=== PATIENT | male | born 1980 | race Caucasian/White ===

== ENCOUNTER 2017-02-01 21:47 | Emergency (ER) | payer MEDICAID, OTHER ==
[2017-02-01 22:01] VITALS: BP 141/72; PULSE 103; RESP 16; TEMP 99.2; O2SAT 98
--- NOTE | 2017-02-01 22:35 | ED PDOC ---
HPI: Dental Pain/Injury Time Seen by Provider: 02/01/17 22:14 Chief Complaint (Nursing): Dental Pain Chief Complaint (Provider): tooth pain History Per: Patient Additional Complaint(s): Patient presents to ED for evaluation of ongoing tooth pain. He states he need something stronger than tylenol as this is not helping the pain. Patient states he is supposed to have several teeth pulled in the morning at [facility] but he was told by his oral surgeon to come to the nearest ED to get a pain killler this evening. Patient denies any fever or chills. Patient is well known to ED for frequent visits. Past Medical History Reviewed: Historical Data, Nursing Documentation, Vital Signs Vital Signs: Last Vital Signs Temp 99.2 F 02/01/17 21:57 Pulse 103 H 02/01/17 21:57 Resp 16 02/01/17 21:57 BP 141/72 02/01/17 21:57 Pulse Ox 98 02/01/17 21:57 - Medical History PMH: Anemia, Anxiety, Asthma, Depression, Fractures, Obstructive Bowel, Post Traumatic Stress Disorder, Seizures, Chronic Pain - Surgical History Other surgeries: bowel resection - Family History Family History: States: No Known Family Hx - Living Arrangements Living Arrangements: With Family - Social History Current smoker - smoking cessation education provided: Yes Alcohol: None Drugs: Denies - Home Medications Home Medications: Ambulatory Orders Medication Instructions Recorded Albuterol 0.083% [Albuterol 0.083% 2 puff INH DAILY 01/29/15 Inhal Natalie (2.5 mg/3 ml) UD] - Allergies Allergies/Adverse Reactions: Allergies Allergy/AdvReac Type Severity Reaction Status Date / Time ibuprofen Allergy Intermediate ANAPHYLAXIS Verified 11/30/15 14:58 latex Allergy Intermediate ANAPHYLAXIS Verified 11/30/15 14:58 levofloxacin [From Levaquin] Allergy Intermediate ANAPHYLAXIS Verified 11/30/15 14:58 Penicillins Allergy Intermediate ANAPHYLAXIS Verified 11/30/15 14:58 povidone-iodine Allergy Intermediate ANAPHYLAXIS Verified 11/30/15 17:06 sulfamethoxazole Allergy Intermediate ANAPHYLAXIS Verified 11/30/15 14:58 [From Bactrim] tramadol HCl [From Ultram] Allergy Intermediate ANAPHYLAXIS Verified 11/30/15 14 :58 trimethoprim [From Bactrim] Allergy Intermediate ITCHING Verified 11/30/15 17:06 Review of Systems ROS Statement: Except As Marked, All Systems Reviewed And Found Negative Constitutional: Negative for: Fever ENT: Positive for: Other (dental pain) Gastrointestinal: Negative for: Vomiting Physical Exam - Reviewed Nursing Documentation Reviewed: Yes Vital Signs Reviewed: Yes - Physical Exam Appears: Positive for: Well, Non-toxic, No Acute Distress Skin: Negative for: Rash Eye Exam: Positive for: Normal appearance ENT: Positive for: Other (overall poor dentition, multiple missing teeth, no gingival erythema or abscesses noted, airway patent, uvula midline) Neurologic/Psych: Positive for: Alert, Oriented, Mood/Affect (agitated) - ECG O2 Sat by Pulse Oximetry: 98 Pulse Ox Interpretation: Normal Medical Decision Making Medical Decision Making: Impression: Dental pain Patient was offered PO tylenol and viscous lidocaine but he refused these meds, stating they won't work for him and he needs something stronger. Patient is well known to ED for history of narcotic abuse. Patient was made aware of narcotic pain management policy. Patient demanded to speak with an attending. Dr. Priest came to bedside to speak with patient and reiterated to patient the narcotic pain med policy. Patient was again offered tylenol and/or viscous lidocaine but he refused both meds. Patient became increasingly agitated, security was called to bedside and patient was escorted out of the ED. He left before receiving any discharge paperwork. Disposition - Clinical Impression Clinical Impression: Pain, dental - Patient ED Disposition Is Patient to be Admitted: No - Disposition Referrals: [facility] [Outside] Disposition: Routine/Home (Patient left before receiving d/c paperwork) Disposition Time: 22:47 Condition: STABLE Instructions: Toothache (ED) Forms: [employer] ([place]ux[place]ish)
== END 2017-02-01 23:16 | disposition left against medical advice (07) ==
LOC: H.ER 21:47
DX: K08.89 Other specified disorders of teeth and supporting structures (principal)

== ENCOUNTER 2018-10-04 09:47 | Emergency (ER) | payer MEDICAID, OTHER ==
[2018-10-04 09:58] VITALS: BP 126/73; PULSE 105; RESP 18; TEMP 97; O2SAT 97
[2018-10-04 09:59] VITALS: BMI 23.8
[2018-10-04] MEDS ORDERED: Oxycodone/Acetaminophen 5/325 mg Tab PO STA (10:50)
[2018-10-04] MEDS ORDERED: Oxycodone/Acetaminophen 5/325 mg Tab ONE (11:11)
--- NOTE | 2018-10-04 11:25 | ED PDOC ---
HPI: Dental Pain/Injury Time Seen by Provider: 10/04/18 10:32 Chief Complaint (Nursing): Dental Pain Chief Complaint (Provider): Dental Pain History Per: Patient History/Exam Limitations: no limitations Onset/Duration Of Symptoms: Days (1) Current Symptoms Are (Timing): Still Present Quality: Aching, "Pain" Additional Complaint(s): 38 y/o male with sickle cell and DVT presents to the ED complaining about upper left toothache since yesterday. Patient has bad teeth and is supposed to have an extraction today at the dentist. Patient states he takes a lot of Percocet due to having sickle cell but ran out. He is not taking any pain medication right now instead of Tylenol. Patient admits taking Clindamycin antibiotics. Patient denies any fever. PMD: none provided Past Medical History Reviewed: Historical Data, Nursing Documentation, Vital Signs Vital Signs: Last Vital Signs Temp 97 F L 10/04/18 09:57 Pulse 105 H 10/04/18 09:57 Resp 18 10/04/18 09:57 BP 126/73 10/04/18 09:57 Pulse Ox 97 10/04/18 09:57 - Medical History PMH: Anemia, Anxiety, Asthma, Depression, Deep Vein Thrombosis, Fractures, Obstructive Bowel, Post Traumatic Stress Disorder, Seizures, Sickle Cell Disease, Chronic Pain Denies: Crohn's Disease, Diabetes, Diverticulitis, Fibromyalgia, Gall Bladder Disease, Hepatitis, HIV, HTN, Hyperthyroidism, Hypothyroidism, Kidney Stones, Pancreatitis, Chronic Kidney Disease, Sexually Transmitted Disease - Surgical History Surgical History: No Surg Hx Denies: Appendectomy - Family History Family History: States: Unknown Family Hx - Immunization History Hx Tetanus Toxoid Vaccination: Yes Hx Influenza Vaccination: Yes Hx Pneumococcal Vaccination: Yes - Home Medications Home Medications: Ambulatory Orders Medication Instructions Recorded Clindamycin [Cleocin] 300 mg PO TID 05/17/17 - Allergies Allergies/Adverse Reactions: Allergies Allergy/AdvReac Type Severity Reaction Status Date / Time ibuprofen Allergy Intermediate ANAPHYLAXIS Verified 09/03/18 14:23 latex Allergy Intermediate ANAPHYLAXIS Verified 09/03/18 14:23 levofloxacin [From Levaquin] Allergy Intermediate ANAPHYLAXIS Verified 09/03/18 14:23 Penicillins Allergy Intermediate ANAPHYLAXIS Verified 09/03/18 14:23 povidone-iodine Allergy Intermediate RASH Verified 09/03/18 14:23 tramadol HCl [From Ultram] Allergy Intermediate RASH Verified 09/03/18 14:23 ketorolac [From Toradol] Allergy RASH Verified 09/03/18 14:23 Review of Systems ROS Statement: Except As Marked, All Systems Reviewed And Found Negative Constitutional: Negative for: Fever ENT: Negative for: Mouth Swelling, Throat Pain, Throat Swelling Musculoskeletal: Negative for: Neck Pain Physical Exam - Reviewed Nursing Documentation Reviewed: Yes Vital Signs Reviewed: Yes - Physical Exam Appears: Positive for: No Acute Distress Head Exam: Positive for: ATRAUMATIC Skin: Positive for: Normal Color Eye Exam: Positive for: EOMI ENT: Positive for: Other (toothache, multiple cavities upper jaw, gums looks swo llen.). Negative for: Tonsillar Exudate, Tonsillar Swelling Neck: Positive for: Normal Extremity: Positive for: Normal ROM Neurological/Psych: Positive for: Awake, Alert - ECG O2 Sat by Pulse Oximetry: 97 - Progress Re-evaluation Time: 12:13 Condition: Re-examined, Improved Medical Decision Making Medical Decision Making: Time:1050 Initial Impression: Toothache and tooth abscess Initial Plan: -Percocet 5/325mg PO Patient has a dentist surgery appointment today. He will be given Percocet here and will continue his antibiotics. Patient will need to follow up with his PMD. Scribe Attestation: Documented by Katya Benedict, acting as a scribe for Gopi Maddox Provider Scribe Attestation: All medical record entries made by the Scribe were at my direction and personally dictated by me. I have reviewed the chart and agree that the record accurately reflects my personal performance of the history, physical exam, medical decision making, and the department course for this patient. I have also personally directed, reviewed, and agree with the discharge instructions and disposition. Disposition - Clinical Impression Clinical Impression: Dental caries, Toothache - Patient ED Disposition Is Patient to be Admitted: No Doctor Will See Patient In The: Office Counseled Patient/Family Regarding: Studies Performed, Diagnosis, Need For Followup - Disposition Referrals: Non [facility] Provider, [Primary Care Provider] - Disposition: Routine/Home Disposition Time: 12:14 Condition: GOOD Additional Instructions: Follow up with your dentist today. Continue taking your antibiotics. PRIETO MENDOZA, thank you for letting us take care of you today. Your provider was Gopi Maddox MD and you were treated for TOOTHACHE. The emergency medical care you received today was directed at your acute symptoms. If you were prescribed any medication, please fill it and take as directed. It may take several days for your symptoms to resolve. Return to the Emergency Department if your symptoms worsen, do not improve, or if you have any other problems. Please contact your doctor or call one of the physicians/clinics you have been referred to that are listed on the Patient Visit Information form that is included in your discharge packet. Bring any paperwork you were given at discharge with you along with any medications you are taking to your follow up visit. Our treatment cannot replace ongoing medical care by a primary care provider outside of the emergency department. Thank you for allowing the [facility] team to be part of your care today. Instructions: Dental Pain (DC)
== END 2018-10-04 12:20 | disposition home or self-care (01) ==
LOC: SUPCPDRO 09:47 → H.ER 09:47
DX: K02.9 Dental caries, unspecified (principal); K04.7 Periapical abscess without sinus